=== PATIENT | male | born 1965 | race Caucasian/White ===

== ENCOUNTER 2018-12-30 07:05 | Day surgery (SDC) | payer OTHER ==
[~2018-12-30] VITALS: Ht 190.5 cm; Wt 97.5 kg
--- NOTE | ~2018-12-30 | OR ---
[facility] [address], [place] [address] Draft DATE OF OPERATION: 12/30/2018 SURGEON: Alfredito Acevedo MD PREOPERATIVE DIAGNOSIS: History of polyps, 2011; hyperplastic polyp, 2004. POSTOPERATIVE DIAGNOSIS: Hypertrophied mucosa of ileocecal valve (biopsied), otherwise normal. PROCEDURE: Total colonoscopy to cecum with biopsy of ileocecal valve. ANESTHESIA: Intravenous sedation, fentanyl 150 mcg, Versed 8 mg. INDICATION: This 53-year-old white man is a patient of Dr. Lenora Bruce. He underwent colonoscopy by me in 2004, at which time, he had hyperplastic polyp. He had followup colonoscopy at the [facility] in 2011, showing one polyp, uncertain as to type. He is symptom free at this time. He does have family history of colon cancer in his father. He is admitted at this time to undergo surveillance colonoscopy, understanding the risks of bleeding, infection, and perforation. FINDINGS: The prep was excellent. Complete colonoscopy was undertaken to the cecum without question. The ileocecal valve was well identified as was the appendiceal orifice. Ileocecal valve appeared to have hypertrophied mucosa or possibly adenomatous change. On that basis, biopsy was obtained there. The remaining colon was entirely free of polyps or other abnormalities. DESCRIPTION OF PROCEDURE: The patient was brought to the endoscopy suite and placed in lateral decubitus position, given intravenous sedation to the point of slurred speech and nystagmus. Digital rectal examination was normal. The Olympus video colonoscope was passed in the rectum and manipulated throughout the colon, ultimately intubating the cecum. The ileocecal valve and appendiceal orifice were well identified. The ileocecal valve appeared to be somewhat hypertrophied in appearance. Narrow band imaging suggested possible adenomatous change. On that basis, PATIENT NAME: ADAN ROD OPERATIVE REPORT DATE OF : 69 REPORT #: [id number] PHYSICIAN: ALFREDITO ACEVEDO MD PCP: MARLIN PURCELL MD REPORT IS CONFIDENTIAL AND NOT TO BE RELEASED WITHOUT AUTHORIZATION [facility] [address], [place] [address] Draft biopsies were obtained. The scope was then withdrawn and careful inspection upon withdrawal of scope showed no sign of abnormality including no polyps, diverticular formation, colitis, or cancer. Retroflex view was normal as well. The scope was removed. The patient was taken to recovery room in good condition. CONCLUDING DIAGNOSIS: Hypertrophied ileocecal valve mucosa, possible adenomatous change. PLAN: We will check the pathology of the biopsies. Recommend repeat colonoscopy in 5 years given family history and history of polyps, sooner if symptoms occurs. MD JENNA Velez/MARY /[id number] cc: Dr. Lenora Bruce [facility] Copies: ~ PATIENT NAME: ADAN ROD OPERATIVE REPORT DATE OF : 69 REPORT #: [id number] PHYSICIAN: ALFREDITO ACEVEDO MD PCP: MARLIN PURCELL MD REPORT IS CONFIDENTIAL AND NOT TO BE RELEASED WITHOUT AUTHORIZATION
[~2018-12-30 07:05] MED LIST: CLARITIN-D 241 EACH PO; FISH OIL + D31 EACH PO; LISINOPRIL-HCT1 EACH PO; MEN'S MULTI-VI1 EACH PO; VITAMIN B-12500 MCG PO; VITAMIN B-6100 MG PO
[2018-12-30] MEDS ORDERED: DICLOFENAC SODI75 MG PO (07:35)
--- NOTE | 2018-12-30 08:46 | NUR ---
12/30/18 0846 Giana Parmar 0837- PT TO PACU IN SUPINE POSITION. EYES OPEN. DENIES PAIN NAUSEA AND DIZZINESS. BREATHING EASY AND UNLABORED ON 2 L VIA NC SP02 >95%. 0844- PT CONTINUES TO BREATH EASY AND EVEN. TITRATED TO RA. SP02 >95%. CONTINUES TO DENY PAIN NAUSEA OR DIZZINESS. PASSING GAS.
--- NOTE | 2018-12-31 16:14 | PATH ---
[facility] [address], [place] [address] Signed SPECIMEN(S): A ILEOCEAL VALVE SPECIMEN SOURCE: A. ILEOCEAL VALVE CLINICAL HISTORY: Pre: History of colon polyps. Post: Hyperplastic ileocecal valve. MICROSCOPIC DESCRIPTION: Sections reveal a biopsy of colonic mucosa. The epithelial surface is intact and has retained mucus secreting ability. The lamina propria is mildly edematous and contains small numbers of plasma cells, lymphocytes and infrequent eosinophils. Levels are obtained, showing similar histologic features. No adenomatous or hyperplastic changes seen. There is no evidence of malignancy or atypia. LJA:cml FINAL PATHOLOGIC DIAGNOSIS: Mucosa, ileocecal valve, biopsy: - Mild edema and nonspecific chronic inflammation. - Negative for adenomatous and hyperplastic change. COMMENT: Multiple levels over three slides are examined. LJA:cml:C2NR GROSS DESCRIPTION: The specimen, labeled "DH, ileocecal valve biopsy," is received in formalin and consists of a 0.2 cm in greatest dimension, arias-white soft tissue fragment. The specimen is entirely submitted in cassette (A1). AR (under the direct supervision of a pathologist) The Gross Description was prepared using a voice recognition system. The report was reviewed for accuracy; however, sound-alike word errors, addition and/or deletions may occur. If there is any question about this report, please contact Client Services. PERFORMING LABORATORY: The technical component was performed by [facility], [address] [place] [id number] ([employer]: Mehreen Jim MD; CLIA# [id number]). [facility], [address] [facility]. 107, PATIENT NAME: ADAN ROD PATHOLOGY DATE OF : 69 REPORT #: [id number] PHYSICIAN: [facility] PCP: MARLIN PURCELL MD REPORT IS CONFIDENTIAL AND NOT TO BE RELEASED WITHOUT AUTHORIZATION [facility] [address], [place] [address] Signed [place] [id number] ([employer]: Tony Ortiz MD; CLIA# [id number]). Diagnostician: Tony Ortiz MD Pathologist Electronically Signed 12/31/2018 Copies: ~ PATIENT NAME: ADAN ROD PATHOLOGY DATE OF : 69 REPORT #: [id number] PHYSICIAN: [facility] PCP: MARLIN PURCELL MD REPORT IS CONFIDENTIAL AND NOT TO BE RELEASED WITHOUT AUTHORIZATION
== END 2018-12-30 09:22 | disposition home or self-care (01) ==
LOC: OPS 07:05 → DS 07:05 → OPS 08:30 → DS 08:30 → OPS 09:22
PROVIDERS: Surgery
PROC: 0DBC8ZX Excision of Ileocecal Valve, Via Natural or Artificial Opening Endoscopic, Diagnostic (ICD-10-PCS; principal; 2018-12-30 08:30)
DX: Z12.11 Encounter for screening for malignant neoplasm of colon (principal); K52.9 Noninfective gastroenteritis and colitis, unspecified; K63.89 Other specified diseases of intestine; I10 Essential (primary) hypertension; Z86.010 Personal history of colon polyps; Z72.0 Tobacco use
CPT/HCPCS: 99153; G0500; J2250; J3010; J7120

== ENCOUNTER 2021-09-04 08:20 | Emergency (ER) | payer OTHER ==
[~2021-09-04] VITALS: Ht 182.9 cm; Wt 97.5 kg
[~2021-09-04 08:20] MED LIST changes: +DICLOFENAC SODI75 MG PO
[2021-09-04] MEDS ORDERED: LIPITOR10 MG PO (08:50)
== END 2021-09-04 09:11 | disposition home or self-care (01) ==
LOC: ED 08:20
DX: S61.217A Laceration without foreign body of left little finger without damage to nail, initial encounter (principal); I10 Essential (primary) hypertension; E78.5 Hyperlipidemia, unspecified; Z79.899 Other long term (current) drug therapy; W26.8XXA Contact with other sharp object(s), not elsewhere classified, initial encounter
CPT/HCPCS: 12001; 99282-25